=== PATIENT | female | born 1975 | race Caucasian/White ===

== ENCOUNTER → 2022-03-10 10:06 | Outpatient (CLI) | payer OTHER, SELFPAY ==
--- NOTE | 2022-03-10 | DI.MRI.S_ITS ---
PROCEDURE: MR ABDOME PELVIS WWO CON INDICATIONS: Intussusception TECHNIQUE: After the ingestion of oral contrast, coronal and axial HASTE, coronal 2-D FLASH in-and [id number] sequences. After the administration of contrast, coronal and axial VIBE or 2-D FLASH with fat saturation sequences acquired through the abdomen and pelvis. Optional diffusion weighted imaging and ADC may be performed. COMPARISON: None. FINDINGS: Image quality: Suboptimal secondary to technique, patient motion, and bowel gas. Bowel and peritoneum: There is a transiently seen area of possible intussusception in the left anterior abdomen, though this is the expected location of patient's small bowel anastomosis. Gastrojejunostomy anatomy is not well seen and potentially obscured by air-filled bowel loop. No convincing intussusception or obstruction. Solid organs: Liver is mildly enlarged in size but normal in enhancement. Gallbladder is absent . Biliary system is non dilated, without findings to suggest primary sclerosing cholangitis. Pancreas is normal in morphology, without evidence for autoimmune pancreatitis. Spleen is normal in size and enhancement. No adrenal nodules. Both kidneys are normal in size and enhancement, without hydronephrosis. Nodes and vessels: No retroperitoneal or mesenteric adenopathy. Aorta and inferior vena cava are normal in size. Lung bases: No basal pleural effusions. Heart size is normal. Pelvis: No free pelvic fluid. No inguinal hernias or adenopathy. Uterus and ovaries are normal. Normal urinary bladder. Bones and soft tissues: No ventral hernias. Bone marrow is normal in overall signal. No findings to suggest sacroiliitis. Femoral heads demonstrate no avascular necrosis. IMPRESSION: 1. No convincing persistent areas to suspect intussusception, however several sequences were suboptimal. CT abdomen pelvis with oral and IV contrast is recommended to compensate for imaging artifacts. 2. Post cholecystectomy. 3. Mild hepatomegaly. Dictated by: Darya Barone M.D. on 03/11/2022 at 14:48 Approved by: Darya Barone M.D. on 03/11/2022 at 15:23
== END ==
PROVIDERS: Referring Provider Physician Assistant; Visit Provider Physician Assistant
DX: K56.1 Intussusception (principal); R16.0 Hepatomegaly, not elsewhere classified; Z90.49 Acquired absence of other specified parts of digestive tract
CPT/HCPCS: 72197; 74183; A9579